=== PATIENT | male | born 1965 | race Two or more races ===

== ENCOUNTER 2019-02-07 06:30 | Day surgery (SDC) | payer OTHER | END 2019-02-07 12:55 | disposition home or self-care (01) | LOC: AMB-ENDOS 06:30 | DX: K57.32 Diverticulitis of large intestine without perforation or abscess without bleeding (principal); K64.1 Second degree hemorrhoids ==

== ENCOUNTER 2019-04-07 11:31 | Inpatient (IN) | payer OTHER ==
[~2019-04-07] VITALS: Ht 177.8 cm; Wt 117.9 kg
[2019-05-08] MEDS ORDERED: COZAAR100 MG PO (16:49)
[2019-05-08] MEDS ORDERED: LASIX20 MG PO (16:49)
[2019-05-08] MEDS ORDERED: METFORMIN HCL1000 M2 PO (16:49)
[2019-05-08] MEDS ORDERED: LANOXIN62.5 MCG PO (16:50)
[2019-05-08] MEDS ORDERED: LANTUS SOL100 UNIT/1 (16:50)
[2019-05-08] MEDS ORDERED: THEOPHYLLINE400 MG PO (16:51)
[2019-05-08] MEDS ORDERED: XANAX XR0.5 MG PO (16:51)
[2019-05-08] MEDS ORDERED: ALDACTONE25 MG PO (16:51)
[2019-05-08] MEDS ORDERED: EFFEXOR XR150 MG PO (16:53)
[2019-05-08] MEDS ORDERED: PRILOSEC OTC20 MG PO (16:53)
[2019-05-17] MEDS ORDERED: INTESTINEX680 M1 PO (11:37)
[2019-05-17] MEDS ORDERED: PERCOCET 5-3251 EACH PO (11:37)
[2019-05-17] MEDS ORDERED: OMEPRAZOLE MAGN20 MG PO (11:37)
== END 2019-05-17 14:11 | disposition home or self-care (01) | DRG 329 ==
LOC: O/R 05-13 06:00 → SURH 05-13 06:00 → SURG 05-13 13:00 → SURH 05-13 14:52 → SURG 05-13 18:15 → SURH 05-14 11:24
PROVIDERS: ADMIT Colon & Rectal Surgery
PROC: 0DQN4ZZ Repair Sigmoid Colon, Percutaneous Endoscopic Approach (ICD-10-PCS; 2019-05-13)
PROC: 0DJD8ZZ Inspection of Lower Intestinal Tract, Via Natural or Artificial Opening Endoscopic (ICD-10-PCS; 2019-05-13)
PROC: 3E0F7GC Introduction of Other Therapeutic Substance into Respiratory Tract, Via Natural or Artificial Opening (ICD-10-PCS; 2019-05-13)
PROC: 0DTN4ZZ Resection of Sigmoid Colon, Percutaneous Endoscopic Approach (ICD-10-PCS; principal; 2019-05-13 18:15)
PROC: 4A12X4Z Monitoring of Cardiac Electrical Activity, External Approach (ICD-10-PCS; 2019-05-14)
PROC: 4A033R1 Measurement of Arterial Saturation, Peripheral, Percutaneous Approach (ICD-10-PCS; 2019-05-14)
DX: K57.20 Diverticulitis of large intestine with perforation and abscess without bleeding (principal); I50.43 Acute on chronic combined systolic (congestive) and diastolic (congestive) heart failure; K92.1 Melena; I13.0 Hypertensive heart and chronic kidney disease with heart failure and stage 1 through stage 4 chronic kidney disease, or unspecified chronic kidney disease; J44.1 Chronic obstructive pulmonary disease with (acute) exacerbation; J45.51 Severe persistent asthma with (acute) exacerbation; J95.89 Other postprocedural complications and disorders of respiratory system, not elsewhere classified; J98.11 Atelectasis; K43.2 Incisional hernia without obstruction or gangrene; E11.22 Type 2 diabetes mellitus with diabetic chronic kidney disease; N18.2 Chronic kidney disease, stage 2 (mild); Z43.3 Encounter for attention to colostomy; Z79.4 Long term (current) use of insulin

== ENCOUNTER → 2019-05-06 | Outpatient (CLI) | payer OTHER ==
[~2019-05-06] MED LIST: ALDACTONE25 MG PO; COZAAR100 MG PO; EFFEXOR XR150 MG PO; LANOXIN62.5 MCG PO; LANTUS SOL100 UNIT/1; LASIX20 MG PO; METFORMIN HCL1000 M2 PO; PRILOSEC OTC20 MG PO; THEOPHYLLINE400 MG PO; XANAX XR0.5 MG PO
== END | disposition home or self-care (01) ==
LOC: RAD 10:08
DX: K57.20 Diverticulitis of large intestine with perforation and abscess without bleeding (principal); Z93.3 Colostomy status; K92.1 Melena

== ENCOUNTER 2019-06-06 13:00 | Emergency (ER) | payer OTHER ==
[~2019-06-06] VITALS: Ht 180.3 cm; Wt 113.4 kg
[~2019-06-06 13:00] MED LIST changes: +INTESTINEX680 M1 PO; +OMEPRAZOLE MAGN20 MG PO; +PERCOCET 5-3251 EACH PO
[2019-06-06] MEDS ORDERED: BACTRIM DS TAB1 EACH PO (19:33)
== END 2019-06-06 20:34 | disposition home or self-care (01) ==
LOC: ER 13:00
DX: T81.49XA Infection following a procedure, other surgical site, initial encounter (principal); K94.03 Colostomy malfunction

== ENCOUNTER 2020-05-21 09:44 | Day surgery (SDC) | payer OTHER ==
[~2020-05-21 09:44] MED LIST changes: +BACTRIM DS TAB1 EACH PO
== END 2020-05-21 15:05 | disposition home or self-care (01) ==
LOC: AMB-ENDOS 09:44
PROVIDERS: ATTEND Colon & Rectal Surgery
DX: K57.32 Diverticulitis of large intestine without perforation or abscess without bleeding (principal); K64.1 Second degree hemorrhoids; Z20.828 Contact with and (suspected) exposure to other viral communicable diseases